=== PATIENT | female | born 1945 | race Caucasian/White ===

== ENCOUNTER → 2020-07-02 13:51 | Outpatient (CLI) | payer MEDICARE, SELFPAY ==
--- NOTE | ~2020-07-02 | DEXA_ITS ---
Bone Density Report Name: Renetta Grubbs Age: 75 Sex: Female Ethnicity: White Date of : 1945 Indication: osteopenia; parental hip fracture; height loss; hysterectomy; postmenopausal Referring Provider: EBONY CARDOZO D.O. Study: Bone densitometry was performed. Exam Date: July 02, 2020 Accession number: [id number] Bone Density: Region BMD T-score Z-score Classification AP Spine (L1-L4) 0.889 -1.4 0.8 Osteopenia Femoral Neck (Left) 0.778 -0.6 1.3 Normal Total Hip (Left) 1.068 1.0 2.7 Normal Femoral Neck (Right) 0.708 -1.3 0.7 Osteopenia Total Hip (Right) 0.939 0.0 1.6 Normal Total Hip Mean 1.004 0.5 2.2 Normal World Health Organization criteria for BMD impression classify patients as: Normal (T-score at or above -1.0), Osteopenia (T-score between -1.0 and -2.5), or Osteoporosis (T-score at or below -2.5). 10-year Fracture Risk(1): Major Osteoporotic Fracture 15% Hip Fracture 4.7% Reported Risk Factors: [place] (), Neck BMD=0.708, BMI=32.0, parental fracture (1) FRAX(R) Version 3.08. Fracture probability calculated for an untreated patient. Fracture probability may be lower if the patient has received treatment. Previous Exams: Region Exam Age BMD T-score BMD Change BMD Change Date g/cm2 vs Baseline vs Previous AP Spine(L1-L4) 07/02/2020 75 0.889 -1.4 0.029 -0.008 08/03/2017 72 0.897 -1.4 0.037* 0.029* 01/28/2015 69 0.868 -1.6 0.008 0.011 01/24/2013 67 0.857 -1.7 -0.003 0.000 09/01/2010 65 0.856 -1.7 -0.003 -0.012 06/20/2008 63 0.868 -1.6 0.009 -0.006 06/16/2006 60 0.875 -1.6 0.015 0.015 05/25/2005 59 0.859 -1.7 Total Hip(Left) 07/02/2020 75 1.068 1.0 0.120 0.044 08/03/2017 72 1.024 0.7 0.075 0.042* 01/28/2015 69 0.982 0.3 0.034 0.032* 01/24/2013 67 0.950 0.1 0.002 0.012 09/01/2010 65 0.939 0.0 -0.010 0.018 06/20/2008 63 0.920 -0.2 -0.028 -0.116* 06/16/2006 60 1.036 0.8 0.088 0.005 05/25/2005 59 1.032 0.7 0.083 0.083 10/11/2003 58 0.948 0.1 Total Hip(Right) 07/02/2020 75 0.939 0.0 0.096 0.024 08/03/2017 72 0.915 -0.2 0.072 0.048* 01/28/2015 69 0.867 -0.6 0.025 0.029* 01/24/2013 67 0.838 -0.9 -0.005 -0.005 09/01/2010 65 0.843 -0.8 0.000
== END ==
PROVIDERS: PCP Internal Medicine; Visit Provider Internal Medicine
DX: Z78.0 Asymptomatic menopausal state (principal); M85.88 Other specified disorders of bone density and structure, other site; M85.851 Other specified disorders of bone density and structure, right thigh
CPT/HCPCS: 77080

== ENCOUNTER → 2020-07-31 12:30 | Outpatient (CLI) | payer MEDICARE, SELFPAY ==
--- NOTE | ~2020-07-31 | MM_ITS ---
EXAMINATION: MM screening kamilla BI w iron HISTORY: Screening TECHNIQUE: Craniocaudal and mediolateral oblique 3-D tomosynthesis images were obtained and synthetic 2-D images were generated. CAD analysis was submitted and interpreted. COMPARISON: Comparison to multiple prior studies sequentially, with oldest reviewed study dated 05/2014. BREAST PARENCHYMAL COMPOSITION: There are scattered areas of fibroglandular density. FINDINGS: There is no evidence of suspicious mass, calcification, or architectural distortion to sugg est malignancy in either breast. There has been no suspicious interval change. IMPRESSION: 1. No mammographic evidence of malignancy. 2. Recommend routine screening mammography in one year. BI-RADS Category 1: Negative Reviewed, dictated and finalized at location A.
== END ==
PROVIDERS: PCP Internal Medicine; Visit Provider Physician Assistant
DX: Z12.31 Encounter for screening mammogram for malignant neoplasm of breast (principal)
CPT/HCPCS: 77063; 77067

== ENCOUNTER 2021-02-13 16:49 | Outpatient (CLI) | payer MEDICARE, SELFPAY ==
--- NOTE | ~2021-02-13 | US_ITS ---
EXAMINATION: US thyroid DATE: 02/13/2021 17:20 INDICATION: Nontoxic single thyroid nodule TECHNIQUE: Multiple ultrasound images of the thyroid were obtained. COMPARISON: 08/01/2009 FINDINGS: The right thyroid lobe measures 4.5 x 1.8 x 1.1 cm. The left thyroid lobe measures 4.8 x 1.7 x 1.4 c m. Slight increase in size of the largest 10 mm wider than tall predominately solid, isoechoic nodul e in the mid right thyroid with smooth and ill-defined margins and without echogenic foci (TI-RADS 3, mildly suspicious , FNA if >=2.5 cm, annual followup is >=1.5 cm). No significant interval change in a 6 mm wider than tall solid hypoechoic nodule with smooth margins at the inferior right thyroid lob e (TI-RADS 4, moderately suspicious , FNA if >=1.5 cm, annual followup is >=1 cm). Unchanged 2.0 cm s olid slightly hypoechoic wider than tall TI RADS 4 nodule without echogenic foci at the inferior left thyroid lobe. IMPRESSION: 1. Multinodular goiter with no interval change in the 2 cm TI RADS 4 nodule at the inferior left thyr oid which is the only nodule meeting criteria for biopsy. Given the lack of interval ion exchange operator grea ter than 11 years however this is almost certainly benign. Reviewed, dictated and finalized at location A. UTILITY OPERATOR IMPRESSION: 1. Multinodular goiter with no interval change in the 2 cm TI RADS 4 nodule at the inferior left thyroid which is the only nodule meeting criteria for biopsy. Given the lack of interval ion exchange operator greater than 11 years however this is a lmost certainly benign.
== END 2021-02-13 16:50 | disposition home or self-care (01) ==
LOC: ANHIMG 16:55
PROVIDERS: PCP Internal Medicine; Visit Provider Internal Medicine
DX: E04.2 Nontoxic multinodular goiter (principal)
CPT/HCPCS: 76536

== ENCOUNTER → 2022-02-04 13:54 | Outpatient (CLI) | payer MEDICARE, SELFPAY ==
--- NOTE | ~2022-02-04 | XR_ITS ---
XR elbow RT min 3V DATE: 02/04/2022 14:05 INDICATION: Swelling at the posterior aspect of right elbow for 4 days TECHNIQUE: 4 views COMPARISON: None FINDINGS: Prominent soft tissue swelling of the dorsum of the elbow consistent with olecranon bursiti s. No fracture or dislocation, periosteal reaction or bone destruction. IMPRESSION: Olecranon bursitis Reviewed, dictated and finalized at location A. RANCE ACCOUNT REPRESENTATIVE IMPRESSION: Olecranon bursitis
== END ==
PROVIDERS: PCP Internal Medicine; Visit Provider Internal Medicine
DX: M25.521 Pain in right elbow (principal); M70.21 Olecranon bursitis, right elbow
CPT/HCPCS: 73080

== ENCOUNTER → 2022-06-16 13:46 | Outpatient (CLI) | payer MEDICARE, SELFPAY ==
--- NOTE | ~2022-06-16 | XR_ITS ---
EXAM: XR knee RT 3V DATE: 06/16/2022 14:04 HISTORY: M25.561 - Pain in right knee; no injury . COMPARISON: 04/07/2006. FINDINGS: Normal mineralization. No fracture or dislocation. No lytic or blastic lesion. Moderate me dial joint space narrowing. Tricompartmental osteophytosis, moderate in the patellofemoral compartmen t. Moderate volume joint fluid. No erosion or periosteal change. Soft tissues within normal limits. IMPRESSION: Moderate tricompartmental right knee osteoarthritis. Reviewed, dictated and finalized at location K.
== END ==
PROVIDERS: PCP Internal Medicine; Visit Provider Internal Medicine
DX: M17.11 Unilateral primary osteoarthritis, right knee (principal)
CPT/HCPCS: 73562

== ENCOUNTER 2022-12-16 13:07 | Outpatient (RCR) | payer MEDICARE, SELFPAY ==
--- NOTE | 2022-12-16 16:43 | STOPEVDC ---
Assessment and note entered by Anu Salceod FOOD SCIENCE TECHNICIAN Thank you for referring Renetta Grubsb to [facility].? An evaluation has been completed. No further treatment is needed. Evaluation Information Assessment Status Evaluation Diagnosis Chronic Cough R05.3 Onset 2022 Subjective Information Patient reports that in 1993, she noticed that she started randomly coughing; prior to that, she reports that she frequently cleared her throat. She was placed on cough syrup and found that was not helpful. In 2007, she was tested for allergies and found to be allergic to mold and dust. She then was placed on cough medicine with codeine but did not want to stay on that. She stated that she recently went to the sinus and allergy center. Several months ago the ENT reported that her vocal cords looked fine, however she returned more recently and that physician had her sniff while he was observing her vocal cords and he stated they did not close properly. Reported Pain Level Pain Score 0: Self Report Assessment ST Clinical Summary BEDSIDE SWALLOW EVALUATION AND VOICE EVALUATION Patient was seen for a Bedside Swallow Evaluation and Voice Evaluation following referral for chronic cough. Patient reports a history of throat clearing and then coughing; she was diagnosed with allergies to only two items, dust and mold, but stated she feels these items may contribute to her cough. Patient was observed to consistently gently cough and clear her throat throughout our walk to the therapy room but only minimally after arriving in the therapy room. She was given a voice evaluation and a bedside swallow evaluation including water, applesauce, and fátima cracker. On both evaluations, voicing, respiration, and swallowing skills were judged to be within normal limits. Patient's voice frequency (hertz) was judged to be slightly lower than expected for age and sex but within a normal range. Vocal loudness and quality were judged to be in the normal range. No evidence of throat clearing, coughing, or change in vocal quality or loudness was observed during the bedside swallow evaluation. Results indicate patient does not require skilled Speech Therapy servic
== END 2022-12-17 10:19 | disposition home or self-care (01) ==
LOC: ANHST 13:07
PROVIDERS: PCP Internal Medicine; Visit Provider Nurse Practitioner Family
DX: R05.3 Chronic cough (principal)
CPT/HCPCS: 92610

== ENCOUNTER 2023-09-14 11:03 | Outpatient (CLI) | payer OTHER, SELFPAY ==
--- NOTE | ~2023-09-14 | MM_ITS ---
EXAMINATION: MM screening kamilla BI w iron HISTORY: Screening TECHNIQUE: Craniocaudal and mediolateral oblique 3-D tomosynthesis images were obtained and synthetic 2-D images were generated. CAD analysis was submitted and interpreted. COMPARISON: Comparison to multiple prior studies sequentially, with oldest reviewed study dated 06/12. BREAST PARENCHYMAL COMPOSITION: Not dense: There are scattered areas of fibroglandular density. FINDINGS: Bilateral breast asymmetries are stable. There is no evidence of suspicious mass, calcifica tion, or architectural distortion to suggest malignancy in either breast. There has been no suspiciou s interval change. IMPRESSION: 1. No mammographic evidence of malignancy. 2. Recommend routine screening mammography in one year. BI-RADS Category 1: Negative Reviewed, dictated and finalized at location B.
== END 2023-09-14 11:04 ==
LOC: MICIMG 11:05
PROVIDERS: PCP Internal Medicine; Visit Provider Physician Assistant
DX: Z12.31 Encounter for screening mammogram for malignant neoplasm of breast (principal)
CPT/HCPCS: 77063; 77067

== ENCOUNTER 2023-11-19 10:01 | Outpatient (CLI) | payer OTHER, SELFPAY ==
--- NOTE | ~2023-11-19 | XR_ITS ---
XR hip BI 2V w AP pelvis 11/19/2023 10:18 Indication: Hip pain for 3 weeks Procedure: AP pelvis and 2 views each hip Comparison: 01/08/2011 Findings: There is mild osteoarthritis of the hips. Pelvic rings are intact. No acute fracture or tra umatic malalignment. Suture lines are reidentified in the pelvis. There is lower lumbar spondylosis p artially visualized. Impression: 1: Mild osteoarthritis of the hips. Reviewed, dictated and finalized at location B. Impression: 1: Mild osteoarthritis of the hips.
== END 2023-11-19 10:02 ==
LOC: MICIMG 10:02
PROVIDERS: PCP Internal Medicine; Visit Provider Internal Medicine
DX: M16.0 Bilateral primary osteoarthritis of hip (principal)
CPT/HCPCS: 73521

== ENCOUNTER 2024-03-01 03:10 | Day surgery (SDC) | payer OTHER, SELFPAY ==
--- NOTE | 2024-02-21 15:36 | PC.NURSE ---
Spoke with patient regarding medication Eliquis. Pt. verbalizes understanding that the last dose is to be taken on 02/27/2024 and the Endoscopist will instruct them when to restart after the procedure.
[2024-03-01 08:27] VITALS: BP 137/69; PULSE 68; RESP 16; TEMP 36.1; O2SAT 98
[2024-03-01] MEDS: LACTATED RINGERS 1,000 ML 150 ML IV CONT (08:37)
--- NOTE | 2024-03-01 09:01 | P.PNAN_ITS ---
Anes - Initial Pre Proc Eval Procedure: Operation Date: 03/01/24 09:30 Proposed Procedures p Colonoscopy - Lauri Reeves MD Date/Time: 03/01/24 09:01 Surgeon: Lauri Reeves MD Pre Op Diagnosis: Personal hx of colon polyps Patient Data Age: 78 Gender: F Height: 1.74 m Weight: 88.9 kg Last Vital Signs Temp 36.1 C L 03/01/24 08:27 Pulse 68 03/01/24 08:27 Resp 16 03/01/24 08:27 BP 137/69 03/01/24 08:27 Pulse Ox 98 03/01/24 08:27 O2 Del Method Room Air 03/01/24 08:27 Allergies Allergy/AdvReac Type Severity Reaction Status Date / Time cefuroxime Allergy Severe Swelling Verified 03/01/24 08:25 Cephalosporins Allergy Severe Swelling Verified 03/01/24 08:25 Sulfa (Sulfonamide Allergy Severe Swelling Verified 03/01/24 08:25 Antibiotics) trimethoprim Allergy Severe Swelling Verified 03/01/24 08:25 house dust Allergy Mild Cough Verified 03/01/24 08:25 levofloxacin Allergy Mild cramps Verified 03/01/24 08:25 mold Allergy Mild Cough Verified 03/01/24 08:25 Home Medications Medication Instructions Recorded Confirmed Type calcium carbonate (Calcium 600) 600 mg PO BID 02/04/19 03/01/24 History cholecalciferol (vitamin D3) 10 400 unit PO DAILY 02/04/19 03/01/24 History mcg (400 unit) capsule iron 65 mg-65 mg-folic acid 1,000 1 tablet PO DAILY 02/04/19 03/01/24 History mcg (24)-vitB with C#12-succ. tablet (Irospan 19/09) omega 4-vfx-ukm-fish oil 500 mg 1 cap PO DAILY 02/04/19 03/01/24 History (200mg-300mg)-1,000 mg capsule multivitamin (Daily Multi-Vitamin 1 tablet PO DAILY 02/03/21 03/01/24 History tablet) levothyroxine 25 mcg tablet 25 mcg PO DAILY #90 tabs 10/14/23 03/01/24 Rx metoprolol tartrate 25 mg tablet 25 mg PO BID #180 tabs 10/19/23 03/01/24 Rx apixaban 5 mg tablet 5 mg PO BID 01/18/24 03/01/24 History ascorbic acid (vitamin C) 500 mg 500 mg PO DAILY 01/18/24 03/01/24 History capsule Calcium + D 1 tab-cap PO DAILY 02/21/24 03/01/24 History atorvastatin 20 mg tablet 20 mg PO DAILY 02/21/24 03/01/24 History solifenacin 5 mg tablet (Vesicare) 5 mg PO HS 02/21/24 03/01/24 History Patient hx anesthesia problems: none Family hx anesthesia problems: none Results Review: All pre-operative results and documents have been reviewed as part of the pre- operative evaluation. [facility] Past Medical History Medical History BMI 30.0-30.9,adult Borderline anemia Lung nodule Pelvis fracture Right tibial fracture Surgical History Surgical History H/O cataract removal with insertion of prosthetic lens 2017 H/O right wrist surgery 2021 - Dr. Anguiano H/O: hysterectomy 1991 Family History Family History Sibling Patient's sister is in good health Father Acute myocardial infarction, Onset Age: 66 Patient's father is Mother Family history of malignant neoplasm of ovary, Onset Age: 69 Social History Social History Smoking status: Never smoker Second hand tobacco smoke exposure: No Alcohol intake: current Drinks per week: 1 Substance use: never Substance use type: does not use Lack of Transportation: No Lack of Food: Never True Current Housing: I Have Housing Concerned About Future Housing: No Difficulty Paying Gas/Electric Bills: No Difficulty Paying for Meds: No Currently Unemployed: No Education: Associate Degree Difficulty w/ Childcare or Family Care: No Living arrangements: with family Spiritual care concerns: No Anes - Eval Final PreProcedure Day of Procedure 03/01/24 09:01 Patient weight: overweight Heart: irregular rhythm Lungs: clear to auscultation Airway: Mallampati scale class III Neurological: alert and oriented Last oral intake: >/= 8 hours ASA classification: III Emergent: no Anesthetic plan: proceed Anesthesia type and monitoring: general GIVS and standard monitoring Results Review: All pre-operative results and documents have been reviewed as part of the pre- operative evaluation. Informed Consent: The patient's anesthetic plan and its attendant risks and benefits were discussed with the patient/family/POA. Questions were solicited and answers provided to the satisfaction of the patient/family/POA.
--- NOTE | 2024-03-01 09:14 | PM.HPGS ---
History of Present Illness History of Present Illness Consent: Risks, benefits, and alternatives have been discussed and questions answered. Patient agrees to proceed with procedure. Chief complaint: Personal hx of colon polyps Narrative: Renetta Grubbs is a 78 year old female with colon Review of Systems Review of Systems: All systems reviewed & are unremarkable except as noted in HPI and below PMFSH Past Medical History Medical History (Updated 03/01/24 @ 09:15 by Lauri Reeves MD) BMI 30.0-30.9,adult Borderline anemia Colon polyp Lung nodule Pelvis fracture Right tibial fracture Surgical History Surgical History H/O cataract removal with insertion of prosthetic lens 2017 H/O right wrist surgery 2021 - Dr. Anguiano H/O: hysterectomy 1991 Family History Family History Sibling Patient's sister is in good health Father Acute myocardial infarction, Onset Age: 66 Patient's father is Mother Family history of malignant neoplasm of ovary, Onset Age: 69 Social History Social History Smoking status: Never smoker Second hand tobacco smoke exposure: No Alcohol intake: current Drinks per week: 1 Substance use: never Substance use type: does not use Lack of Transportation: No Lack of Food: Never True Current Housing: I Have Housing Concerned About Future Housing: No Difficulty Paying Gas/Electric Bills: No Difficulty Paying for Meds: No Currently Unemployed: No Education: Associate Degree Difficulty w/ Childcare or Family Care: No Living arrangements: with family Spiritual care concerns: No Meds Home Medications and Allergies Home Medications Medication Instructions Recorded Confirmed Type calcium carbonate (Calcium 600) 600 mg PO BID 02/04/19 03/01/24 History cholecalciferol (vitamin D3) 10 400 unit PO DAILY 02/04/19 03/01/24 History mcg (400 unit) capsule iron 65 mg-65 mg-folic acid 1,000 1 tablet PO DAILY 02/04/19 03/01/24 History mcg (24)-vitB with C#12-succ. tablet (Irospan 19/09) omega 2-eqz-gtt-fish oil 500 mg 1 cap PO DAILY 02/04/19 03/01/24 History (200mg-300mg)-1,000 mg capsule multivitamin (Daily Multi-Vitamin 1 tablet PO DAILY 02/03/21 03/01/24 History tablet) levothyroxine 25 mcg tablet 25 mcg PO DAILY #90 tabs 10/14/23 03/01/24 Rx metoprolol tartrate 25 mg tablet 25 mg PO BID #180 tabs 10/19/23 03/01/24 Rx apixaban 5 mg tablet 5 mg PO BID 01/18/24 03/01/24 History ascorbic acid (vitamin C) 500 mg 500 mg PO DAILY 01/18/24 03/01/24 History capsule Calcium + D 1 tab-cap PO DAILY 02/21/24 03/01/24 History atorvastatin 20 mg tablet 20 mg PO DAILY 02/21/24 03/01/24 History solifenacin 5 mg tablet (Vesicare) 5 mg PO HS 02/21/24 03/01/24 History Allergies Allergy/AdvReac Type Severity Reaction Status Date / Time cefuroxime Allergy Severe Swelling Verified 03/01/24 08:25 Cephalosporins Allergy Severe Swelling Verified 03/01/24 08:25 Sulfa (Sulfonamide Allergy Severe Swelling Verified 03/01/24 08:25 Antibiotics) trimethoprim Allergy Severe Swelling Verified 03/01/24 08:25 house dust Allergy Mild Cough Verified 03/01/24 08:25 levofloxacin Allergy Mild cramps Verified 03/01/24 08:25 mold Allergy Mild Cough Verified 03/01/24 08:25 Vital Signs Vital Signs - 24 hr 03/01/24 08:27 Temperature 97 F L Pulse Rate 68 Respiratory Rate 16 Blood Pressure 137/69 Pulse Oximetry 98 Oxygen Delivery Room Air Exam Const: General: comfortable and no acute distress HENMT: Face/Nose/Sinus: Normal nares present Eyes: General: appearance normal, both eyes and all related structures Neck: Neck: no JVD Resp: Auscultation: clear to auscultation bilaterally Cardio: Rate: regular rate Rhythm: regular rhythm GI: Inspection: non-distended GI Palp: Yes Soft to palpation Skin: General skin exam: normal color Neuro: General: gait normal Speech: normal speech Extrem: General: normal to inspection Psych: Mental Status: mental status grossly normal Assessment and Plan Assessment and plan (1) Colon polyp: Code(s): K63.5 - Polyp of colon Status: Acute Assessment and Plan: colonoscopy
[2024-03-01 09:29] VITALS: BP 108/52; PULSE 52; RESP 16; O2SAT 97
[2024-03-01 09:39] VITALS: BP 110/54; PULSE 71; RESP 22; O2SAT 100
[2024-03-01 09:49] VITALS: BP 107/71; PULSE 63; RESP 20; O2SAT 100
== END 2024-03-01 10:02 | disposition home or self-care (01) ==
PROVIDERS: PCP Internal Medicine; Visit Provider Internal Medicine Gastroenterology
PROC: 0DJD8ZZ Inspection of Lower Intestinal Tract, Via Natural or Artificial Opening Endoscopic (ICD-10-PCS; CPT 45378; principal; 2024-03-01 09:30)
DX: Z12.11 Encounter for screening for malignant neoplasm of colon (principal); K63.5 Polyp of colon; D64.9 Anemia, unspecified; Z79.01 Long term (current) use of anticoagulants; Z98.890 Other specified postprocedural states; Z80.41 Family history of malignant neoplasm of ovary; Z82.49 Family history of ischemic heart disease and other diseases of the circulatory system
CPT/HCPCS: 45385; 88305; J2704; J7120

== ENCOUNTER 2024-11-15 12:10 | Outpatient (CLI) | payer OTHER, SELFPAY ==
--- NOTE | ~2024-11-15 | MM_ITS ---
EXAMINATION: MM screening kamilla BI w iron HISTORY: Screening mammogram TECHNIQUE: Craniocaudal and mediolateral oblique 3-D tomosynthesis images were obtained and synthetic 2-D images were generated. CAD analysis was submitted and interpreted. COMPARISON: 09/14/2023, 07/31/2020 BREAST PARENCHYMAL COMPOSITION:Not Dense. There are scattered areas of fibroglandular density. FINDINGS: No suspicious mass, calcification, or architectural distortion are identified in either breast to suggest malignancy. There has been no suspicious interval change. IMPRESSION: No mammographic evidence of malignancy. Recommend routine screening mammography in one year. BI-RADS Category 1: Negative Reviewed, dictated and finalized at location .
== END 2024-11-15 12:11 | disposition home or self-care (01) ==
LOC: MICIMG 12:10
PROVIDERS: PCP Internal Medicine; Visit Provider Internal Medicine
DX: Z12.31 Encounter for screening mammogram for malignant neoplasm of breast (principal)
CPT/HCPCS: 77063; 77067

== ENCOUNTER 2024-12-28 08:47 | Outpatient (CLI) | payer OTHER, SELFPAY ==
--- NOTE | ~2024-12-28 | XR_ITS ---
EXAMINATION: XR knee RT 3V, 12/28/2024 8:52 CDT HISTORY: M25.561 - Pain in right knee COMPARISON: No comparisons available. Findings: No acute fracture or malalignment. Moderate tricompartmental degenerative changes Soft tissues unremarkable. Impression: No acute fracture or malalignment. Reviewed, dictated and finalized at location P. Impression: No acute fracture or malalignment.
== END 2024-12-28 08:48 | disposition home or self-care (01) ==
LOC: MICIMG 08:48
PROVIDERS: PCP Internal Medicine; Visit Provider Internal Medicine
DX: M25.561 Pain in right knee (principal)
CPT/HCPCS: 73562